=== PATIENT | male | born 1960 | race Caucasian/White ===

== ENCOUNTER → 2017-08-27 | Day surgery (SDC) | payer OTHER ==
[~2017-08-27] MED LIST: ALLEGRA180 MG; FENTANYL CITRATE/PF 100MCG/2 ML INJ ONE; HYOSCYAMINE SULFATE 0.5 MG/ML AMP ONE; LIDOCAINE HCL 2% LOCAL INJ 5 ML SDV VIAL INJ ONE; MIDAZOLAM HCL 2 MG/2 ML VIAL ONE; NASACORT AQ16.5 GM; PROPOFOL IV EMULSION 10 MG/ML 50 ML VIAL ONE
--- NOTE | 2017-08-27 10:37 | Operative Report ---
DATE OF PROCEDURE: August 27, 2017 REFERRING PHYSICIAN: Dr. Fabian Huffman PROCEDURES PERFORMED 1. Esophagogastroduodenoscopy with biopsies. 2. Colonoscopy with polypectomy. INDICATIONS FOR EGD: Heartburn. INDICATIONS FOR COLONOSCOPY: Colorectal cancer screening. Family history of colon cancer. MEDICATION: Patient was done under MAC. Please see anesthesiologist's note. PROCEDURE: With the patient in the left lateral decubitus position, the flexible fiberoptic Olympus gastroscope was introduced into the esophagus under direct visualization without any difficulty. There was a nodular inlet patch noted just below the upper esophageal sphincter, and that was biopsied. Erosions were noted in the distal esophagus without active bleeding. There were tongues of velvety red mucosa extending proximally from the GE junction, and biopsies were obtained to rule out Keen's. The scope was then advanced with ease into the stomach, traversing a small hiatal hernia. Mucosa overlying the antrum and the body revealed some patchy erythema and mild to moderate edema, and biopsies were obtained and sent to stain for H. pylori. Pylorus appeared to be of normal contour and shape. It was intubated with ease, and the scope was advanced all the way to the 2nd portion of the duodenum. The scope was then withdrawn slowly. Mucosa overlying the proximal 2nd portion and the duodenal bulb appeared to be within normal limits. The scope was then withdrawn back into the stomach and retroflexed. The mucosa overlying the fundus and the cardia appeared to be within normal limits. The scope was then straightened out. The stomach was decompressed. Scope was subsequently withdrawn. Patient tolerated the procedure well. IMPRESSION 1. Nodular inlet patch, biopsied. 2. Erosive distal esophagitis. 3. Rule out Keen's esophagus. 4. Hiatal hernia. 5. Gastritis, biopsied. Biopsies sent to stain for H. pylori. PLAN: Follow up histology. Initiate Protonix 40 mg 1 p.o. q.a.m. a.c. The patient was then turned around. After adequate lubrication of the anal canal, a flexible fiberoptic Olympus colonoscope was inserted into the rectum with ease and advanced all the way to the cecum. Mucosa overlying the cecum and the ascending colon appeared to be within normal limits. One polyp was snared and 1 polyp was hot biopsied from the transverse colon. One polyp was hot biopsied from the descending colon. The rest of the descending and sigmoid appeared to be within normal limits. One polyp was hot biopsied from the distal rectum. The scope was then retroflexed into the distal rectum. Small internal hemorrhoids were noted, none of which was actively bleeding. The scope was then straightened out. It was subsequently withdrawn. Patient tolerated the procedure well. IMPRESSION 1. Transverse colon polyps times 2, one snared and one hot biopsied. 2. Descending colon polyp, hot biopsied. 3. Distal rectal polyp, hot biopsied. 4. Internal hemorrhoids, none actively bleeding. PLAN: Follow up histology. Initiate high-fiber, low-fat diet. Initiate high-fiber supplement. Patient will need a followup colonoscopy in 3 years. Job#: [id number] CC: FABIAN HUFFMAN MD
== END | disposition home or self-care (01) ==
LOC: OR 06:11
PROVIDERS: ATTEND Internal Medicine Gastroenterology
DX: Z12.11 Encounter for screening for malignant neoplasm of colon (principal); D12.3 Benign neoplasm of transverse colon; K62.1 Rectal polyp; K29.70 Gastritis, unspecified, without bleeding; K22.10 Ulcer of esophagus without bleeding; K22.8 Other specified diseases of esophagus; K44.9 Diaphragmatic hernia without obstruction or gangrene; K64.8 Other hemorrhoids; Z01.810 Encounter for preprocedural cardiovascular examination; Z68.25 Body mass index [BMI] 25.0-25.9, adult; Z80.0 Family history of malignant neoplasm of digestive organs
CPT/HCPCS: 43239; 45384; 45385; 93005; J1980; J2001; J2250

== ENCOUNTER → 2019-03-23 | Day surgery (SDC) | payer OTHER ==
[~2019-03-23] MED LIST changes: +FISH OIL 1,0001 EAC2 PO; +GLUCAGON FOR INJ 1 MG VIAL ONE; -HYOSCYAMINE SULFATE 0.5 MG/ML AMP ONE; -LIDOCAINE HCL 2% LOCAL INJ 5 ML SDV VIAL INJ ONE; +MULTIVITAMINS1 EAC7 PO; +PANTOPRAZOLE SO40 MG PO
--- OUTSIDE RECORDS SUMMARY | 2019-03-23 05:53 | XMS REPORT | Clinical Summary ---
Author Author [facility] Organization [facility] Address Unknown Phone Unavailable Care Team Providers Care Systems Software Developer Name Role Phone Mark Beck MD PCP Allergies No Known Allergies Medications End Date Status Medication Sig Dispensed Refills Start Date Active pantoprazole (PROTONIX) TAKE 1 TABLET 3 40 MG EC tablet BY MOUTH 7 EVERY MORNING BEFORE MEALS Active fexofenadine (KANIDCE) Take 180 mg 0 180 MG tablet by mouth. Active fluticasone (FLONASE) 50 STANDARD DOSE 11 mcg/actuation nasal spray 1-2 SPRAYS 8 PER NOSTRIL DAILY. WHEN NASAL CONGESTION IS SEVERE MAY USE TWICE DAILY. Active fluticasone (FLONASE) 50 2 sprays into 0 mcg/actuation nasal spray each nostril. 8 Active Problems Problem Noted Date Erectile dysfunction 09/01/2017 BPH without obstruction/lower urinary tract symptoms 09/01/2017 Encounters Care Team Description Date Type Specialty Yarelis Parham MA Urinary tract infection without hematuria, site unspecified (Primary Dx) 09/20/2018 Orders Only Urology Sergio Reinoso MD BPH without obstruction/lower urinary tract symptoms (Primary Dx); Erectile dysfunction, unspecified erectile dysfunction type 09/15/2018 Office Visit Urology after 03/22/2018 Family History Medical History Relation Name Comments Cancer Father Relation Name Status Comments Father Mother Alive Social History Date Tobacco Use Types Packs/Day Years Used Never Smoker Smokeless Tobacco: Never Used Alcohol Use Drinks/Week oz/Week Comments Yes Sex Assigned at Date Recorded Not on file Industry Job Start Date Occupation Not on file Not on file Not on file Travel End Travel History Travel Start No recent travel history available. Last Filed Vital Signs Not on file Plan of Treatment Care Team Description Date Type Specialty Sergio Reinoso MD [address] [facility] [address] [place] [address] [phone] 09/22/2019 Office Visit Urology Health Maintenance Due Date Last Done Comments COLONOSCOPY SCREENING 2009 SHINGLES VACCINES (#1) 2009 INFLUENZA VACCINE 04/14/2019 05/10/2011 Procedures Comments Procedure Name Priority Date/Time Associated Diagnosis MICROSCOPIC EXAMINATION Routine 09/21/2018 8:[address] [employer] [employer] URINALYSIS, COMPLETE, Routine 09/21/2018 Urinary tract infection WITH REFLEX TO CULTURE 8:[address] [employer] [employer] without hematuria, site unspecified after 03/22/2018 Results * URINALYSIS, COMPLETE, WITH REFLEX TO CULTURE (09/21/2018 8:[address] [facility] [employer]) Specific 1.017 1.005 - 1.030 [facility] gravity, urine pH, urine 6.0 5.0 - 7.5 [facility] Color, UA Yellow Yellow [facility] Appearance Clear Clear [facility] WBC esterase, Negative Negative [facility] urine Protein, UA Negative Negative/Trace [facility] Glucose, urine Negative Negative [facility] Ketones, UA Negative Negative [facility] Occult blood, Negative Negative [facility] urine Bilirubin, UA Negative Negative [facility] Urobilinogen, 0.2 0.2 - 1.0 mg/dL [facility] UA Nitrite, UA Negative Negative [facility] Microscopic CommentComment: Microscopic [facility] examination follows if indicated. Microscopic See below:Comment: Microscopic [facility] examination was indicated and was performed. Urinalysis CommentComment: This specimen [facility] reflex will not reflex to a Urine Culture. Specimen Narrative Performed At Performed at: - [facility] [place] [facility] [address] [place], [id number] Cabin Man: Manish Forrest MD, Phone:[phone] Performing Organization Address City/State/Zipcode Phone Number [facility] * Microscopic Examination (09/21/2018 8:[address] [facility] [employer]) WBC, UA 0-5 0 - 5 /hpf [facility] RBC, UA 0-2 0 - 2 /hpf [facility] Epithelial None seen 0 - 10 /hpf [facility] cells (non renal) Mucus, UA Present Not Estab. [facility] Bacteria, UA None seen None seen/Few [facility] Specimen Narrative Performed At Performed at: - [facility] [place] [facility] [address], [id number] Cabin Man: Manish Forrest MD, Phone:[phone] Performing Organization Address City/State/Zipcode Phone Number [facility] after 03/22/2018 Insurance Type Payer Benefit Subscriber ID Effective Phone Address Plan / Dates Group PPO AETNA AETNA xxxxxxxxxx [id number] [facility] PPO (Home) [place] [address] Advance Directives Patient has advance care planning documents on file. For more information, solitario hernandez contact: Yuval Sarabia [address] [place] [address]
[2019-03-23 08:40] VITALS: BP 120/86
--- NOTE | 2019-03-23 11:33 | Operative Report ---
DATE OF PROCEDURE: 03/23/2019 SURGEON: Dalton Hernandez MD PROCEDURE: Esophagogastroduodenoscopy with biopsies. INDICATIONS FOR EGD: History of Keen's esophagus. MEDICATION: The patient was done under MAC, please see anesthesiologist's note. PROCEDURE IN DETAIL: With the patient in left lateral decubitus position, a flexible fiberoptic Olympus gastroscope was introduced into the esophagus under direct visualization without any difficulty. There was some patchy erythema noted in distal esophagus. Keen's epithelium was noted in the distal esophagus with 1 cm segment and tongues of Keen's extending maximally 2 cm above the aforementioned segment. In addition, a small island of Keen's epithelium was noted in the distal esophagus. Biopsies were obtained. The scope was then advanced with ease into the stomach traversing a moderate-sized hiatal hernia. The mucosa overlying the antrum and the body appeared to be grossly within normal limits. Pylorus was of normal contour and shape, it was intubated with ease and the scope was advanced all the way to the second portion of the duodenum. Scope was then withdrawn slowly and mucosa overlying the proximal second portion and the duodenal bulb appeared to be within normal limits. The scope was then withdrawn back into the stomach and retroflexed and mucosa overlying the fundus appeared to be within normal limits. The previously described hiatal hernia was also noted in the retroflexed position. The scope was then straightened out, it was subsequently withdrawn. The patient tolerated procedure well. IMPRESSION: 1. Distal esophagitis, mild. 2. 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 3. Moderate-sized hiatal hernia. 4. Normal stomach. PLAN: Follow up histology. Continue Protonix 40 mg one p.o. q.a.m. a.c. Dalton Hernandez MD [facility] [place] /[id number] cc: Mark Huffman MD
== END | disposition home or self-care (01) ==
LOC: OR 05:51
PROVIDERS: ATTEND Internal Medicine Gastroenterology
DX: K22.70 Barrett's esophagus without dysplasia (principal); K29.70 Gastritis, unspecified, without bleeding; K21.0 Gastro-esophageal reflux disease with esophagitis; K44.9 Diaphragmatic hernia without obstruction or gangrene; Z01.810 Encounter for preprocedural cardiovascular examination; R03.0 Elevated blood-pressure reading, without diagnosis of hypertension; Z86.19 Personal history of other infectious and parasitic diseases; Z80.0 Family history of malignant neoplasm of digestive organs
CPT/HCPCS: 43239; 93005; J1610; J2250; J2704; J3010

== ENCOUNTER → 2019-07-26 | Day surgery (SDC) | payer OTHER ==
[~2019-07-26] MED LIST changes: -FENTANYL CITRATE/PF 100MCG/2 ML INJ ONE; -GLUCAGON FOR INJ 1 MG VIAL ONE; +HYOSCYAMINE 0.125 MG TAB ONE; +LIDOCAINE HCL 2% LOCAL INJ 5 ML SDV VIAL INJ ONE
--- OUTSIDE RECORDS SUMMARY | 2019-07-26 10:24 | XMS REPORT ---
Author Author [facility] Address Unknown Phone Unavailable Care Team Providers Care Flight Technician Name Role Phone Unavailable Unavailable Problems This patient has no known problems. Allergies, Adverse Reactions, Alerts This patient has no known allergies or adverse reactions. Medications This patient has no known medications.
--- OUTSIDE RECORDS SUMMARY | 2019-07-26 10:24 | XMS REPORT | Summary of Care ---
Author Author [facility] - Health Organization [facility] - Health Address Unknown Phone Unavailable Care Team Providers Care Bottom Turning Lathe Turner Name Role Phone Mark Beck MD PCP Reason for Visit * Reason Comments Physical Encounter Details Care Team Description Date Type Department Mark Beck MD [address] [place] [address] Routine general medical examination at a health care facility (Primary Dx); Screening for diabetes mellitus; Screening for lipoid disorders; Screening for hypertension; Special screening for malignant neoplasm of prostate; Bilateral hip pain; Erectile dysfunction, unspecified erectile dysfunction type 06/02/2019 Office Visit [facility]- [address] [address], [address] [place] [address] Allergies No Known Allergiesdocumented as of this encounter (statuses as of 06/03/2019) Medications End Date Status Medication Sig Dispensed Refills Start Date Active fexofenadine 180 mg Take 180 mg 0 tablet by mouth. Active tobramycin-dexamethasone Place in 3.5 g 2 ophthalmic ointment left eye 4 7 (four) times daily. Active pantoprazole 40 mg EC TAKE 1 TABLET 0 tablet BY MOUTH 7 EVERY MORNING BEFORE MEALS Active amoxicillin-clavulanate Take 1 tablet 20 tablet 0 875-125 mg per by mouth 2 8 tabletIndications: Acute (two) times non-recurrent sinusitis, daily. unspecified location Active fluticasone 50 Use 2 Sprays 16 g 0 mcg/actuation nasal in each 8 sprayIndications: Acute nostril non-recurrent sinusitis, daily. unspecified location Active predniSONE 20 mg Take 1 tablet 4 tablet 0 tabletIndications: Acute by mouth 2 8 non-recurrent sinusitis, (two) times unspecified location daily. Active azelastine 137 mcg (0.1 PLEASE SEE %) nasal spray ATTACHED FOR 9 DETAILED DIRECTIONS documented as of this encounter (statuses as of 06/03/2019) Active Problems Not on filedocumented as of this encounter (statuses as of 06/03/2019) Social History Date Tobacco Use Types Packs/Day Years Used Never Smoker Smokeless Tobacco: Never Used Drinks/Week oz/Week Comments Alcohol Use every day Yes Sex Assigned at Date Recorded Not on file Industry Job Start Date Occupation Not on file Not on file Not on file Travel End Travel History Travel Start No recent travel history available. documented as of this encounter Last Filed Vital Signs Reading Time Taken Comments Vital Sign 125/84 06/02/2019 8:10 AM CDT Blood Pressure 83 06/02/2019 8:10 AM CDT Pulse 36.6 C (97.8 F) 06/02/2019 8:10 AM CDT Temperature - - Respiratory Rate 98% 06/02/2019 8:10 AM CDT Oxygen Saturation - - Inhaled Oxygen Concentration 90.1 kg (198 lb 9.6 oz) 06/02/2019 8:10 AM CDT Weight 182.9 cm (6') 06/02/2019 8:10 AM CDT Height 26.94 06/02/2019 8:10 AM CDT Body Mass Index documented in this encounter Progress Notes * Rizwana Donahue - 06/02/2019 8:00 AM CDT Venipuncture X 1 completed in left arm. Pt tolerated well. Labs completed by Jaylen Donahue * Mark Beck MD - 06/02/2019 8:00 AM CDT Cc: Chief Complaint Patient presents with Physical HPI Calixto Angela is a 59 year old male with a PMHx as shown below, presenting to the clinic for physical. The patient reports that he has started experiencing bilateral hip pain, with th e L hip usually more painful than the R. He notes that he received an injection about 15 years ago that alleviated the pain in the past. Denies urination problems, hearing loss, CP, palpitations, SOB or changes in BM. He also notes that he feels joint pain and swelling in his hands. GERD - Patient reports that he takes pantoprazole 40 mg as prescribed with no re ported side effects. Allergic Rhinitis - Labs from 05/26/18 were reviewed with patient. Health maintenance- The patient reports that he does not regularly exercise but he lives an active lifestyle. He notes that his colonoscopy is due next Summer. States that he visits the dentist every 6 months and last saw ophthalmology elkinu t 4 months ago. Pt reports that he sleeps 5-6 hours of sleep. States that he eat s oatmeal with blueberries, coffee and orange juice. He notes that he qill typic ally have a turkey sandwich for lunch. Pt reports that heats a lot of vegetables and healthy foods during the weekdays. States that he drinks plenty of water. Allergies Calixto has No Known Allergies. Medications Outpatient Medications Prior to Visit Medication Sig Dispense Refill fluticasone 50 mcg/actuation nasal spray Use 2 Sprays in each nostril daily. 16 g 0 pantoprazole 40 mg EC tablet TAKE 1 TABLET BY MOUTH EVERY MORNING BEFORE MARTY LS fexofenadine 180 mg tablet Take 180 mg by mouth. azelastine 137 mcg (0.1 %) nasal spray PLEASE SEE ATTACHED FOR DETAILED DIRE CTIONS 12 amoxicillin-clavulanate 875-125 mg per tablet Take 1 tablet by mouth 2 (two) times daily. 20 tablet 0 predniSONE 20 mg tablet Take 1 tablet by mouth 2 (two) times daily. 4 tablet 0 tobramycin-dexamethasone ophthalmic ointment Place in left eye 4 (four) susana es daily. 3.5 g 2 No facility-administered medications prior to visit. Histories Past Medical History: Diagnosis Date Allergic rhinitis History reviewed. No pertinent surgical history. Social History Socioeconomic History Marital status: Spouse name: Not on file Number of children: Not on file Years of education: Not on file Highest education level: Not on file Occupational History Not on file Social Needs Financial resource strain: Not on file Food insecurity: Worry: Not on file Inability: Not on file Transportation needs: Medical: Not on file Non-medical: Not on file Tobacco Use Smoking status: Never Smoker Smokeless tobacco: Never Used Substance and Sexual Activity Alcohol use: Yes Comment: every day Drug use: No Sexual activity: Yes Partners: Female Lifestyle Physical activity: Days per week: Not on file Minutes per session: Not on file Stress: Not on file Relationships Social connections: Talks on phone: Not on file Gets together: Not on file Attends alevism service: Not on file Active member of club or organization: Not on file Attends meetings of clubs or organizations: Not on file Relationship status: Not on file Intimate partner violence: Fear of current or ex partner: Not on file Emotionally abused: Not on file Physically abused: Not on file Forced sexual activity: Not on file Other Topics Concern Not on file Social History Narrative Not on file Family History Problem Relation Age of Onset No Significant Medical Problems Mother Cancer Father Review of Systems Constitutional: Negative for chills, fatigue and fever. HENT: Negative for congestion and sore throat. Eyes: Negative for visual disturbance. Respiratory: Negative for cough, shortness of breath and wheezing. Cardiovascular: Negative for chest pain and palpitations. Gastrointestinal: Negative for abdominal pain, constipation, nausea and vomiting . Genitourinary: Negative for urgency, hematuria, difficulty urinating and nocturi a. Musculoskeletal: Positive for arthralgias and joint swelling. Negative for myalg ias. (+) bilateral hip pain Skin: Negative for rash. Neurological: Negative for dizziness, light-headedness and headaches. All other systems reviewed and are negative. Vital Signs BP 125/84 (Patient Position: Sitting) | Pulse 83 | Temp 36.6 C (97.8 F) (O ral) | Ht 6' (1.829 m) | Wt 198 lb 9.6 oz (90.1 kg) | SpO2 98% | BMI 26.94 k g/m Physical Exam Constitutional: He is oriented to person, place, and time. He appears well-devel oped and well-nourished. HENT: Head: Normocephalic and atraumatic. Right Ear: External ear normal. Left Ear: External ear normal. Nose: Nose normal. Mouth/Throat: Oropharynx is clear and moist. Eyes: Pupils are equal, round, and reactive to light. Conjunctivae and EOM are n ormal. Neck: Normal range of motion. Neck supple. No JVD present. No thyromegaly presen t. Cardiovascular: Normal rate, regular rhythm and normal heart sounds. No murmur heard. Pulmonary/Chest: Effort normal and breath sounds normal. No respiratory distress . He has no wheezes. He has no rales. Abdominal: Soft. Bowel sounds are normal. He exhibits no distension and no mass. There is no tenderness. There is no rebound. Musculoskeletal: Normal range of motion. He exhibits no edema. Lymphadenopathy: He has no cervical adenopathy. Neurological: He is alert and oriented to person, place, and time. Skin: Skin is warm and dry. No rash noted. No erythema. No pallor. Psychiatric: He has a normal mood and affect. His behavior is normal. Nursing note and vitals reviewed. Assessment/Plan Calixto was seen today for physical. Diagnoses and all orders for this visit: Routine general medical examination at a health care facility -Ordered routine tests to screen for abnormalities. - Urinalysis [[id number]] - CBC With Differential [[id number]] - Lipid Panel (04425)(Total Cholesterol, Triglycerides, HDL) [[id number]] - Thyroid Stimulating Hormone (TSH) [[id number]] - Complete Metabolic Panel (42546) [[id number]] - Prostatic Specific Antigen (PSA) Total Screening [[id number]] - GLYCOSYLATED HEMOGLOBIN (A1C) Screening for diabetes mellitus -Ordered A1C to screen for DM. Screening for lipoid disorders -Ordered lipid panel to screen for lipoid disorders Special screening for malignant neoplasm of prostate -Ordered PSA to screen for malignant neoplasm of prostate. Screening for hypertension -BP is 125/84 today in clinic. Will continue to monitor at NOV. Bilateral hip pain -Patient reports bilateral hip pain. Ordered XR hips. - XR HIPS 2 VW BILATERAL; Future Erectile dysfunction, unspecified erectile dysfunction type -Ordered free and total testosterone. - TESTOSTERONE, FREE AND TOTAL Plan discussed with patient . Understands medications , no barriers for compli ance , no side effects , and medications reconciled. Current medications are ef fective. Counseled patient about appropriate healthy behaviors and home self ma nagement. Pt able to complete self management goals. Patient able to explain ba ck the plan and is provided a printed after visit summary (AVS) documenting the visit, pertinent patient instructions and follow-up recommendations. Scribe's Attestation IPauline am scribing for, and in the presence of, Mark escobedo MD who performed the services described here-in. Pauline Easton, June 02, 2019, 10:52 AM Physician's Attestation I, Mark Zimmer. Melvin Coffey, personally performed the services described in this d ocumentation , as scribed by, Pauline Easton in my presence and it is both accur ate and complete. Mark Coffey MD June 03, 2019 documented in this encounter Plan of Treatment Date/Time Name Type Priority Associated Diagnoses 06/02/2019 8:35 AM CDT TESTOSTERONE, FREE AND LAB Routine Erectile dysfunction, TOTAL unspecified erectile dysfunction type Health Maintenance Due Date Last Done Comments HEPATITIS C (HCV) SCREEN 1960 DTaP,Tdap,and Td Vaccines 1978 (1 - Tdap) Zoster Recombinant 2009 Vaccine (SHINGRIX) (1 of 2) INFLUENZA VACCINE (#1) 2019 05/10/2011 COLONOSCOPY 08/27/2027 08/27/2017 PNEUMOCOCCAL 0-64 YEARS Aged Out No longer eligible based COMBINED SERIES on patient's age to complete this topic documented as of this encounter Procedures Comments Procedure Name Priority Date/Time Associated Diagnosis CBC WITH DIFFERENTIAL Routine 06/02/2019 Routine general medical 8:35 AM CDT examination at a [facility] URINALYSIS Routine 06/02/2019 Routine general medical 8:35 AM CDT examination at a [facility] GLYCOSYLATED HEMOGLOBIN Routine 06/02/2019 Routine general medical (A1C) 8:35 AM CDT examination at a [facility] CBC WITH DIFF Routine 06/02/2019 Routine general medical 8:35 AM CDT examination at a [facility] LIPID PANEL (27160)(TOTAL Routine 06/02/2019 Routine general medical CHOLESTEROL, 8:35 AM CDT [facility]. METABOLIC PANEL Routine 06/02/2019 Routine general medical (98672) 8:35 AM CDT examination at a health care facility THYROID STIMULATING Routine 06/02/2019 Routine general medical HORMONE 8:35 AM CDT examination at a health care facility PROSTATIC SPECIFIC Routine 06/02/2019 Routine general medical ANTIGEN 8:35 AM CDT examination at a health care facility documented in this encounter Results * XR HIPS 2 VW BILATERAL (06/02/2019 9:04 AM CDT) Specimen Impressions Performed At Mild to moderate bilateral hip osteoarthrosis, slightly more notable on the PACS/VR/DOSE left. No acute bony abnormality is present. Narrative Performed At EXAM: PACS/VR/DOSE XR HIPS 2 VW BILATERAL HISTORY: chronic hip pain, bilateral COMPARISON: None FINDINGS: Imaging of the left and right hip demonstrates a right-sided os acetabulum. Scattered pelvic phleboliths are seen. Right sided injection granulomas are seen. Bilateral femoral acetabular subchondral sclerosis with marginal osteophyte formation are seen. There is mild to moderate superior-lateral left hip joint space narrowing, more extensive on the left. Procedure Note [facility], Radiant Results Inft User - 06/02/2019 9:08 AM CDT EXAM: XR HIPS 2 VW BILATERAL HISTORY: chronic hip pain, bilateral COMPARISON: None FINDINGS: Imaging of the left and right hip demonstrates a right-sided os acetabulum. Scattered pelvic phleboliths are seen. Right sided injection granulomas are seen. Bilateral femoral acetabular subchondral sclerosis with marginal osteophyte formation are seen. There is mild to moderate superior-lateral left hip joint space narrowing, more extensive on the left. IMPRESSION Mild to moderate bilateral hip osteoarthrosis, slightly more notable on the left. No acute bony abnormality is present. Performing Organization Address City/State/Zipcode Phone Number PACS/VR/DOSE * CBC WITH DIFFERENTIAL (06/02/2019 8:35 AM CDT) WBC 4.38 4.20 - 10.70 [facility] 10*3/L SERVICES RBC 4.91 4.26 - 5.52 10*6/L [facility] HGB 14.9 12.2 - 16.4 g/dL [facility] HCT 45.0 38.4 - 49.3 % [facility] MCV 91.6 81.7 - 95.6 fL [facility] MCH 30.3 26.1 - 32.7 pg [facility] MCHC 33.1 31.2 - 35.0 g/dL [facility] RDW-SD 40.8 38.5 - 51.6 fL [facility] RDW-CV 12.2 12.1 - 15.4 % [facility] PLT 181 150 - 328 10*3/L [facility] MPV 9.5 (L) 9.8 - 13.0 fL [facility] NRBC/100 WBC 0.0 0.0 - 10.0 /100 WBCs [facility] NRBC x10^3 <0.01 10*3/L [facility] SERVICES GRAN MAT (NEUT) 54.3 % [facility] % SERVICES IMM GRAN % 0.50 % [facility] LYMPH % 31.1 % [facility] MONO % 11.4 % [facility] EOS % 1.8 % [facility] BASO % 0.9 % [facility] GRAN MAT 2.38 1.99 - 6.95 10*3/uL [facility] x10^3(ANC) SERVICES IMM GRAN x10^3 <0.03 0.00 - 0.06 10*3/uL [facility] LYMPH x10^3 1.36 1.09 - 3.23 10*3/uL [facility] MONO x10^3 0.50 0.36 - 1.02 10*3/uL [facility] EOS x10^3 0.08 0.06 - 0.53 10*3/uL [facility] BASO x10^3 0.04 0.01 - 0.09 10*3/uL [facility] Specimen Blood Performing Organization Address City/[facility]/Zipcode Phone Number [facility] CLIA: [id number], [address] [place], [place] [address] [facility] * GLYCOSYLATED HEMOGLOBIN (A1C) (06/02/2019 8:35 AM CDT) HGB A1C 5.3 4.0 - 6.0 % [facility] SERVICES Specimen Blood Performing Organization Address City/[facility]/Zipcode Phone Number [facility] CLIA: [id number], [address] [place] [address] [facility] * Prostatic Specific Antigen (PSA) Total Screening [[id number]] (06/02/2019 8:35 AM CDT) PSA 0.22 <=4.00 ng/mL [facility] SERVICES Specimen Blood Narrative Performed At [facility] has been reported to cause a negative bias, interpret results relative to [facility] patient's use of biotin. SERVICES Performing Organization Address City/State/Zipcode Phone Number [facility] CLIA: [id number], [address] [place] [address] [facility] * Complete Metabolic Panel (04676) [[id number]] (06/02/2019 8:35 AM CDT) NA 140 135 - 145 mmol/L [facility] K 4.4 3.5 - 5.0 mmol/L [facility] SERVICES CL 103 98 - 108 mmol/L [facility] CO2 TOTAL 28 23 - 31 mmol/L [facility] AGAP 9 2 - 16 [facility] BUN 18 7 - 23 mg/dL [facility] GLUCOSE 90 70 - 110 mg/dL [facility] CREATININE 0.98 0.60 - 1.25 mg/dL [facility] TOTAL BILI 0.7 0.1 - 1.1 mg/dL [facility] SERVICES CALCIUM 9.5 8.6 - 10.6 mg/dL [facility] SERVICES T PROTEIN 7.5 6.3 - 8.2 g/dL [facility] SERVICES ALBUMIN 4.4 3.5 - 5.0 g/dL [facility] SERVICES ALK PHOS 61 34 - 122 U/L [facility] SERVICES ALT(SGPT) 35 9 - 51 U/L [facility] AST(SGOT) 35 13 - 40 U/L [facility] SERVICES eGFR 78.0 mL/min/1.73m2 [facility] Calculation SERVICES (Non-) eGFR 94.6 mL/min/1.73m2 [facility] Calculation SERVICES () Specimen Blood Narrative Performed At Association of Glomerular Filtration Rate (GFR) and Staging of Kidney Disease* [facility] + + + + SERVICES | GFR (mL/min/1.73 m2)| With Kidney Damage|Without Kidney Damage + + + + |>90|Stage one| Normal + + + + |60-89|Stage two| Decreased GFR + + + + |30-59|Stage three| Stage three + + + + |15-29|Stage four | Stage four + + + + |<15 (or dialysis)|Stage five | Stage five + + + + *Each stage assumes the associated GFR level has been in effect for at least three months.Stages 1 to 5, with or without kidney disease, indicate chronic kidney disease. Notes: Determination of stages one and two (with eGFR >59mL/min/1.73 m2) requires estimation of kidney damage for at least three months as defined by structural or functional abnormalities of the kidney, manifested by either: Pathological abnormalities or Markers of kidney damage (including abnormalities in the composition of the blood or urine or abnormalities in imaging tests). Performing Organization Address [facility] Phone Number [facility] CLIA: [id number], [address] [place] [address] [facility] * Thyroid Stimulating Hormone (TSH) [[id number]] (06/02/2019 8:35 AM CDT) TSH 1.48 0.45 - 4.70 mIU/L [facility] SERVICES Specimen Blood Performing Organization Address [facility] [place] Phone Number [facility] CLIA: [id number], [address] [place] [address] [facility] * Lipid Panel (26379)(Total Cholesterol, Triglycerides, HDL) [[id number]] (06/02/2019 8:35 AM CDT) CHOL 223 (H) 120 - 200 mg/dL [facility] SERVICES HDL 53 >40 mg/dL [facility] HDLC RATIO 4.2 <=5.0 [facility] TRIG 113 30 - 170 mg/dL [facility] LDL CHOL 147 <=160 mg/dL [facility] SERVICES VLDL 23 5 - 60 mg/dL [facility] SERVICES Specimen Blood Performing Organization Address [facility] [place] Phone Number [facility] CLIA: [id number], [address] [place] [address] [facility] * Urinalysis [[id number]] (06/02/2019 8:35 AM CDT) APPEARANCE Clear Clear [facility] COLOR Yellow Yellow [facility] PH 6.0 4.8 - 8.0 [facility] SP GRAVITY 1.017 1.003 - 1.030 [facility] GLU U QUAL Normal Normal [facility] BLOOD Negative Negative [facility] KETONES Negative Negative [facility] PROTEIN Negative Negative [facility] UROBILIN Normal Normal [facility] BILIRUBIN Negative Negative [facility] NITRITE Negative Negative [facility] LE[place] ALAYNA Negative Negative [facility] RBC/HPF 0 0 - 3 HPF [facility] WBC/HPF <1 0 - 5 HPF [facility] BACTERIA Negative Negative [facility] MUCOUS Slight (A) Negative LPF [facility] SQ EPITH <1 <=2 HPF [facility] Specimen Urine - URINE, CLEAN CATCH Performing Organization Address City/State/Zipcode Phone Number [facility] CLIA: [id number], [address] [place], [place] [address] [facility] documented in this encounter Visit Diagnoses Diagnosis Routine general medical examination at a health care facility - Primary Screening for diabetes mellitus Screening for lipoid disorders Screening for hypertension Special screening for malignant neoplasm of prostate Bilateral hip pain Pain in joint, pelvic region and thigh Erectile dysfunction, unspecified erectile dysfunction type documented in this encounter Insurance Type Payer Benefit Subscriber ID Effective Phone Address Plan / Dates Group PPO AETNA AETNA PPO [id number] 2016-P GENERIC resent documented as of this encounter"
--- OUTSIDE RECORDS SUMMARY | 2019-07-26 10:24 | XMS REPORT | Summary of Care ---
Author Author [facility] - Health Organization [facility] - Health Address Unknown Phone Unavailable Care Team Providers Care Machine Binding Folder Name Role Phone Mark Beck MD PCP Encounter Details Care Team Description Date Type Department Mark Beck MD [address] [place] [address] 06/02/2019 [facility] Diagnostic Encounter and Breast Imaging, [address] [address] Allergies No Known Allergiesdocumented as of this [...] Active azelastine 137 mcg (0.1 PLEASE SEE 05/10/201 %) nasal spray ATTACHED FOR 9 DETAILED [...] of this encounter Last Filed Vital Signs Not on filedocumented in this encounter Plan of Treatment Health Maintenance Due Date Last Done Comments [...] Comments Procedure Name Priority Date/Time Associated Diagnosis XR HIPS 2 VW BILATERAL Routine 06/02/2019 Bilateral hip pain 9:04 AM CDT documented in this encounter Results * XR [...] more extensive on the left. Procedure Note [facility], Radiant Results Inft User - 06/02/2019 9:08 [...] Performing Organization Address City/State/Zipcode Phone Number PACS/VR/DOSE documented in this encounter Visit Diagnoses Diagnosis Bilateral hip pain Pain in joint, pelvic region and thigh documented in this encounter Insurance Type Payer Benefit Subscriber ID Effective Phone Address Plan / Dates Group PPO AETNA AETNA PPO [id number] 2016-P GENERIC resent documented as of this encounter
--- OUTSIDE RECORDS SUMMARY | 2019-07-26 10:24 | XMS REPORT | Summary of Care ---
Author Author [facility] - Health Organization [facility] - Health Address Unknown Phone Unavailable Care Team Providers Care Youth Accommodation Support Worker Name Role Phone Mark Beck MD PCP Encounter Details Care Team Description Date Type Department Doctor Unassigned, [place] [address] [place] [id number] 06/02/2019 Orders Only [address] [address] Allergies No Known Allergiesdocumented as of this encounter (statuses as of 06/02/2019) Medications End Date Status Medication Sig Dispensed [...] non-recurrent sinusitis, (two) times unspecified location daily. documented as of this encounter (statuses as of 06/02/2019) Active Problems Not on filedocumented as of this encounter (statuses as of 06/02/2019) Social History Date Tobacco Use Types Packs/Day [...] filedocumented in this encounter Plan of Treatment Care Team Description Date Type Specialty Mark Beck MD [address] [place] [address] 06/02/2019 Office Visit Internal Medicine Health Maintenance Due Date Last Done Comments [...] Comments Procedure Name Priority Date/Time Associated Diagnosis ASSIGNMENT OF BENEFITS Routine 06/02/2019 7:59 AM CDT documented in this encounter Results Not on filedocumented in this encounter Insurance Type Payer Benefit Subscriber ID Effective Phone Address Plan / Dates Group PPO AETNA AETNA PPO [id number] 2016-P GENERIC resent documented as of this encounter
--- OUTSIDE RECORDS SUMMARY | 2019-07-26 10:24 | XMS REPORT | Summary of Care ---
Author Author [facility] - Health Organization [facility] - Health Address Unknown Phone Unavailable Care Team Providers Care Public Improvement Inspector Name Role Phone Mark Beck MD PCP Reason for Visit * Reason Comments Physical Encounter Details Care Team Description Date Type Department Mark Beck MD [address] [place] [address] Routine general medical examination at a health care facility (Primary Dx); Screening for diabetes mellitus; Screening for lipoid disorders; Screening for hypertension; Special screening for malignant neoplasm of prostate; Bilateral hip pain; Erectile dysfunction, unspecified erectile dysfunction type 06/02/[address] [facility]- [address] [address], [address] [place] [address] Allergies No Known Allergiesdocumented as [...] file Gets together: Not on file Attends pentecostal service: Not on file Active member of [...] tests to screen for abnormalities. - Urinalysis [[id number]] - CBC With Differential [[id number]] - Lipid Panel (57961)(Total Cholesterol, Triglycerides, HDL) [[id number]] - Thyroid Stimulating Hormone (TSH) [[id number]] - Complete Metabolic Panel (42107) [[id number]] - Prostatic Specific Antigen (PSA) Total Screening [[id number]] - GLYCOSYLATED HEMOGLOBIN (A1C) Screening for diabetes [...] medical 8:35 AM CDT examination at a [facility] care facility URINALYSIS Routine 06/02/2019 Routine general medical 8:35 AM CDT examination at a [facility] care facility GLYCOSYLATED HEMOGLOBIN Routine 06/02/2019 Routine general medical (A1C) 8:35 AM CDT examination at a [facility] care facility CBC WITH DIFF Routine 06/02/2019 Routine general medical 8:35 AM CDT examination at a [facility] care facility LIPID PANEL (53172)(TOTAL Routine 06/02/2019 Routine general medical CHOLESTEROL, 8:35 AM CDT examination at a [facility]CERIDES, [facility] COMP. METABOLIC PANEL Routine 06/02/2019 Routine general medical (64343) 8:35 AM CDT examination at a health [...] more extensive on the left. Procedure Note [facility], Radiant Results Inft User - 06/02/2019 [...] BASO x10^3 0.04 0.01 - 0.09 10*3/uL [facility] Specimen Blood Performing Organization Address City/[facility]/Zipcode Phone Number [facility] CLIA: [id number], [address] [place], [place] [address] [facility] * GLYCOSYLATED HEMOGLOBIN (A1C) (06/02/2019 8:35 AM CDT) HGB A1C 5.3 4.0 - 6.0 % [facility] Specimen Blood Performing Organization Address City/[facility]/Zipcode Phone Number [facility] CLIA: [id number], [address] [place] [address] [address] [facility] * Prostatic Specific Antigen (PSA) Total Screening [[id number]] (06/02/2019 8:35 AM CDT) PSA 0.22 <=4.00 ng/mL [facility] Specimen Blood Narrative Performed At [facility] has been reported to cause a negative bias, interpret results relative to [facility] patient's use of biotin. SERVICES Performing Organization Address City/State/Zipcode Phone Number [facility] CLIA: [id number], [address] [place] [address] [facility] * Complete Metabolic Panel (77413) [[id number]] (06/02/2019 8:35 AM CDT) NA 140 135 - 145 mmol/L [facility] K 4.4 3.5 - 5.0 mmol/L [facility] CL 103 98 - 108 mmol/L [facility] CO2 TOTAL 28 23 - 31 mmol/L [facility] AGAP 9 2 - 16 [facility] BUN 18 7 - 23 mg/dL [facility] GLUCOSE 90 70 - 110 mg/dL [facility] CREATININE 0.98 0.60 - 1.25 mg/dL [facility] TOTAL BILI 0.7 0.1 - 1.1 mg/dL [facility] CALCIUM 9.5 8.6 - 10.6 mg/dL [facility] T PROTEIN 7.5 6.3 - 8.2 g/dL [facility] ALBUMIN 4.4 3.5 - 5.0 g/dL [facility] ALK PHOS 61 34 - 122 U/L [facility] ALT(SGPT) 35 9 - 51 U/L [facility] AST(SGOT) 35 13 - 40 U/L [facility] eGFR 78.0 mL/min/1.73m2 [facility] Calculation SERVICES (Non-) eGFR 94.6 mL/min/1.73m2 [facility] Calculation SERVICES () Specimen Blood Narrative Performed At Association of Glomerular Filtration Rate (GFR) and Staging of Kidney Disease* [facility] + + + + SERVICES | [...] abnormalities in imaging tests). Performing Organization Address [facility] Phone Number [facility] CLIA: [id number], [address] [place] [address] [facility] * Thyroid Stimulating Hormone (TSH) [[id number]] (06/02/2019 8:35 AM CDT) TSH 1.48 0.45 - 4.70 mIU/L [facility] Specimen Blood Performing Organization Address [facility] Phone Number [facility] CLIA: [id number], [address] [place] [address] [facility] * Lipid Panel (84387)(Total Cholesterol, Triglycerides, HDL) [[id number]] (06/02/2019 8:35 AM CDT) CHOL 223 (H) 120 - 200 mg/dL [facility] HDL 53 >40 mg/dL [facility] HDLC RATIO 4.2 <=5.0 [facility] TRIG 113 30 - 170 mg/dL [facility] LDL CHOL 147 <=160 mg/dL [facility] VLDL 23 5 - 60 mg/dL [facility] Specimen Blood Performing Organization Address [facility] Phone Number [facility] CLIA: [id number], [address] [place] [address] [facility] * Urinalysis [[id number]] (06/02/2019 8:35 AM CDT) APPEARANCE Clear Clear [facility] COLOR Yellow Yellow [facility] PH 6.0 4.8 - 8.0 [facility] SP GRAVITY 1.017 1.003 - 1.030 [facility] GLU U QUAL Normal Normal [facility] BLOOD Negative Negative [facility] [...] HPF [facility] BACTERIA Negative Negative [facility] MUCOUS Slight (A) Negative LPF [facility] SQ EPITH <1 <=2 H[facility] Specimen Urine - URINE, CLEAN CATCH Performing Organization Address City/State/Zipcode Phone Number [facility] CLIA: [id number], [address] [place], [place] [address] [facility] documented in this encounter Visit Diagnoses [...] / Dates Group PPO AETNA AETNA PPO [id number] 2016-P GENERIC resent documented as of this encounter"
--- OUTSIDE RECORDS SUMMARY | 2019-07-26 10:25 | XMS REPORT | Summary of Care ---
Author Author [facility] - Health Organization [facility] - Health Address Unknown Phone Unavailable Care Team Providers Care Office Assistant Name Role Phone Mark Beck MD PCP Reason for Referral * (Routine) Referred By Contact Referred To Contact Status Reason Specialty Diagnoses / Procedures Mark Beck MD [address] [place] [address] New Request Orthopedic Diagnoses Surgery Bilateral hip pain P rocedures CONSULT/REFERRAL ORTHOPAEDIC SURGERY Reason for Visit * Reason Comments Results Encounter Details Care Team Description Date Type Department Mark Beck MD [address] [place] [phone] Results [facility] [address] [place] [address] Allergies No Known Allergiesdocumented as [...] nasal spray ATTACHED FOR 9 DETAILED DIRECTIONS Active meloxicam 15 mg Take 1 tablet 30 tablet 1 tabletIndications: by mouth 9 Bilateral hip pain daily. documented as of this encounter (statuses [...] this topic documented as of this encounter Results Not on filedocumented in this encounter Visit Diagnoses Diagnosis Bilateral hip pain - Primary Pain in joint, pelvic region and thigh documented in this encounter Insurance Type Payer Benefit Subscriber ID Effective Phone Address Plan / Dates Group PPO AETNA AETNA PPO [id number] 2016-P GENERIC resent documented as of this encounter
[2019-07-26 12:45] VITALS: BP 141/86
== END | disposition home or self-care (01) ==
LOC: OR 09:50
PROVIDERS: ATTEND Internal Medicine Gastroenterology
DX: K52.9 Noninfective gastroenteritis and colitis, unspecified (principal); K63.5 Polyp of colon; K62.1 Rectal polyp; K64.8 Other hemorrhoids; K29.70 Gastritis, unspecified, without bleeding; K22.70 Barrett's esophagus without dysplasia; K44.9 Diaphragmatic hernia without obstruction or gangrene; R03.0 Elevated blood-pressure reading, without diagnosis of hypertension; Z01.810 Encounter for preprocedural cardiovascular examination; Z68.26 Body mass index [BMI] 26.0-26.9, adult; Z86.19 Personal history of other infectious and parasitic diseases; Z80.0 Family history of malignant neoplasm of digestive organs
CPT/HCPCS: 45384; 93005; J2001; J2250; J2704; 45380